=== PATIENT | female | born 1940 ===

== ENCOUNTER → 2017-06-27 | Outpatient (CLI) | payer MEDICARE, OTHER ==
--- NOTE | 2017-06-27 17:26 | RADRPT ---
PROCEDURE: XR bilateral knees. CLINICAL INDICATION: 76 years of age, female. Pain. TECHNIQUE: Six views of the bilateral knees with weight bearing. COMPARISON: None available FINDINGS: RIGHT KNEE: There is a cemented total knee replacement that is anatomically aligned. Negative for evidence of co mponent loosening or failure. There is suspected wear of the polyethylene liner with narrowing of th e medial and lateral joint spaces. There may also be wear of the resurfacing button over the patella with narrowing of the patellofemoral joint space. Negative for joint effusion. Additional comment: None. LEFT KNEE: There is moderate tricompartmental osteoarthritis with joint space narrowing and osteophytes in all 3 compartments. The lateral compartment is most affected. Normal alignment of the tibio-femoral and patellofemoral joints. There is a small amount of knee joint fluid. Negative for significant soft tissue swelling. Additional comment: None. IMPRESSION: 1. Cemented right total knee replacement is in anatomic alignment. There is suspected wear of the po lyethylene liner with narrowing of the joint spaces as described. 2. Moderate tricompartmental osteoarthritis of the left knee. RPTAT: [facility] Physician Fred Date Time Electronically viewed and signed by Physician Fred on 06/27/2017 17:25 /
--- NOTE | 2017-06-28 06:53 | HKNOTE ---
DATE OF SERVICE: 06/27/2017 CHIEF COMPLAINT: Right knee pain. HISTORY OF PRESENT ILLNESS: Karrie is a 76-year-old female who is here for evaluation of bilateral kne e pain, right worse than left. She had a right total knee replacement about 13 to 14 years ago. Eladio kaur has been getting annual checkups and has been doing well. About 2 to 3 weeks ago the patient deve loped sudden and severe pain in her right knee with inability to bear weight on the right lower extr emity. The pain started decreasing after 2 to 3 days and over the past couple of weeks, the pain tsai s almost completely resolved. She also has pain in her left knee related to osteoarthritis and she wants to discuss further management of her knees. She is here to make sure that the right knee repl acement is still intact. There is no history of fever or chills. There is no history of falling or trauma and patient denies any instability of the knees. She continues to work and stay active. Eladio kaur is exercising almost every day. No other joint pains are reported. PAST MEDICAL HISTORY: Significant for hypothyroidism, hypertension. MEDICATIONS 1. Losartan. 2. Levothyroxine. 3. Hydrochlorothiazide. 4. Aspirin. 5. Glucosamine. 6. Vitamin D. 7. Metamucil. ALLERGIES: NONE. REVIEW OF SYSTEMS: Negative for chest pain, shortness of breath, nausea, vomiting, diarrhea. Posit tiffani for joint pain and stiffness, especially on the left knee. PHYSICAL EXAMINATION: GENERAL: Shows a pleasant female. She is awake, alert and oriented. VITAL SIGNS: Stable with a height 5 feet 6 inches, weight 190, pulse rate is 78 and respirations 16 . MUSCULOSKELETAL: The patient is walking without a limp. Both lower extremities show mild swelling of the knees. The right knee has a healed incision. Range of motion is 0 to 120 degrees with mild crepitus. There is no instability and no neurovascular deficit. On the left side, patient has mild swelling of the left knee with mild valgus deformity less than 10 degrees. Range of motion is 5 to 120 with crepitus. Lateral joint line tenderness is noted on the left knee. There is no leg lengt h inequality. IMAGING: X-rays of both knees were reviewed and show a right total knee replacement in good positio n with no evidence of loosening. On the left side, the patient has advanced osteoarthritis, worse i n the lateral compartment. ASSESSMENT AND PLAN: A 76-year-old female with a painful right total knee replacement. The pain wa s short-lived and most likely related to position of her knee since she had been sitting in an awkwa rd position for a long time. However, since that knee is about 14 years old there is a possibility of wear and osteolysis. The patient is advised to follow up annually for her right knee. On the le ft side, the patient has advanced osteoarthritis. Treatment options were discussed including medica tions, injections, knee brace and knee replacement. The patient wants to avoid all invasive treatme nt and we will continue her exercises. She will follow up in 6 months for her left knee. We will r epeat x-rays at that time. Dictated By: ERIC MENDEZ/CLAUDIO Conf#: [id number] DID#: [id number]
== END | disposition home or self-care (01) ==
LOC: HKI 13:49
PROVIDERS: ATTEND Orthopaedic Surgery
DX: M25.561 Pain in right knee (principal); I10 Essential (primary) hypertension; E03.9 Hypothyroidism, unspecified; Z79.82 Long term (current) use of aspirin; Z96.651 Presence of right artificial knee joint
CPT/HCPCS: 73562; G0463